=== PATIENT | female | born 1980 | race African-American/Black ===

== ENCOUNTER 2017-10-03 15:56 | Outpatient (CLI) | payer MEDICAID ==
[2017-10-03] MEDS ORDERED: IBUPROFEN 800 MG TABLET ONE (16:17)
[2017-10-03] MEDS ORDERED: IBUPROFEN 800 MG TABLET PO ONE (16:19)
[2017-10-03 16:52] LABS: APPEARANCE,URINE CLEAR; BILIRUBIN,URINE NEGATIVE (NEGATIVE); COLOR,URINE YELLOW; GLUCOSE, URINE NEGATIVE (NEGATIVE); KETONES,URINE NEGATIVE (NEGATIVE); LEUKOCYTE ESTERASE,URINE NEGATIVE (NEGATIVE); NITRITE,URINE NEGATIVE (NEGATIVE); PROTEIN,URINE NEGATIVE (NEGATIVE); URINE SPECIFIC GRAVITY 1.023; UROBILINOGEN,URINE NEGATIVE mg/dL (<2.0)
[2017-10-03 17:17] LABS: URINE AMPHETAMINES SCREEN NEGATIVE; URINE BARBITURATES SCREEN NEGATIVE; URINE BENZODIAZEPINES SCREEN NEGATIVE; URINE COCAINE SCREEN NEGATIVE; URINE MARIJUANA (THC) SCREEN NEGATIVE; URINE METHADONE SCREEN NEGATIVE; URINE PHENCYCLIDINE SCREEN NEGATIVE
== END 2017-10-03 18:00 | disposition home or self-care (01) ==
LOC: LC 15:56
PROVIDERS: ATTEND Obstetrics & Gynecology
PROC: 4A1HXCZ Monitoring of Products of Conception, Cardiac Rate, External Approach (ICD-10-PCS; principal; 2017-10-03)
DX: O09.522 Supervision of elderly multigravida, second trimester (principal); O47.02 False labor before 37 completed weeks of gestation, second trimester; Z3A.21 21 weeks gestation of pregnancy
CPT/HCPCS: 59899; 81001; 80307; J3490

== ENCOUNTER 2017-10-26 11:51 | Outpatient (CLI) | payer MEDICAID ==
[2017-10-26 12:32] LABS: APPEARANCE,URINE CLEAR; BILIRUBIN,URINE NEGATIVE (NEGATIVE); COLOR,URINE YELLOW; GLUCOSE, URINE NEGATIVE (NEGATIVE); KETONES,URINE NEGATIVE (NEGATIVE); LEUKOCYTE ESTERASE,URINE NEGATIVE (NEGATIVE); NITRITE,URINE NEGATIVE (NEGATIVE); PROTEIN,URINE NEGATIVE (NEGATIVE); URINE SPECIFIC GRAVITY 1.006; UROBILINOGEN,URINE NEGATIVE mg/dL (<2.0)
[2017-10-26 12:47] LABS: URINE AMPHETAMINES SCREEN NEGATIVE; URINE BARBITURATES SCREEN NEGATIVE; URINE BENZODIAZEPINES SCREEN NEGATIVE; URINE COCAINE SCREEN NEGATIVE; URINE MARIJUANA (THC) SCREEN NEGATIVE; URINE METHADONE SCREEN NEGATIVE; URINE PHENCYCLIDINE SCREEN NEGATIVE
--- NOTE | 2017-10-26 14:15 | RADIOLOGY REPORT (SQ) ---
EXAM DESCRIPTION: U/S OB LIMITED COMPLETED DATE/TIME: 10/26/2017 2:03 pm REASON FOR STUDY: cervical length, presentation, placement of placen COMPARISON: None. TECHNIQUE: Limited transabdominal grayscale ultrasound for evaluation of specific requested obstetri saida parameters. LIMITATIONS: None. FINDINGS: CERVICAL LENGTH: 1.8 cm. Closed. JHONY: Not obtained FHR: 139 beats per minute. PRESENTATION: Breech. OTHER: Posterior placenta. MIKE: 02/04/2018. Gestational age: 25 weeks 4 days. IMPRESSION: LIMITED OBSTETRICAL ULTRASOUND WITH MEASURED PARAMETERS DELINEATED ABOVE. Trimester of : Second trimester - 13 weeks 1 day to 27 weeks 6 days. TECHNICAL DOCUMENTATION: JOB ID: [id number] [employer]- All Rights Reserved Reading location - IP/workstation name: [email or web address]
--- NOTE | 2017-10-26 14:20 | L&D Progress Notes ---
PROGRESS NOTES Datetime Report Generated by CPN: 10/26/2017 14:20 PROGRESS NOTE Procedures: Ultrasound Plan: Continue Present Management Vital Signs : Reviewed; Within Normal Limits Comment: pt denies contractions, no contractions by palpation by CNM but many movements. pt instructed to call RN if any contractions occur. pt lying flat in bed. MD notified of cervical length. SIGNATURE SIGNATURE: [phone] Assignment: Delmy Marquez MD Signature: with User ID: [email or web address] : with User ID: [email or web address]
--- NOTE | 2017-10-26 15:10 | L&D Progress Notes ---
PROGRESS NOTES Datetime Report Generated by CPN: 10/26/2017 15:09 PROGRESS NOTE Comment: after discussing care with Dr Cedeno and sending pictures of cervical ultrasound, plan of care by Dr Cedeno explained to pt-motrin 600mg [id number] for 3 days, no steroids for now, follow up with Dr Cedeno on Sunday as scheduled. continue P17 weekly, strict PTL precautions. FETUS C SIGNATURE: [id number] Assignment: Delmy Marquez MD Signature: with User ID: [email or web address] : with User ID: [email or web address]
== END 2017-10-26 15:06 | disposition home or self-care (01) ==
LOC: LC 11:51
PROVIDERS: ATTEND Obstetrics & Gynecology
PROC: 4A1HXCZ Monitoring of Products of Conception, Cardiac Rate, External Approach (ICD-10-PCS; principal; 2017-10-26)
DX: O26.872 Cervical shortening, second trimester (principal); O09.522 Supervision of elderly multigravida, second trimester; Z3A.25 25 weeks gestation of pregnancy
CPT/HCPCS: 76815; 80307; 81001; 87086

== ENCOUNTER 2017-12-29 18:45 | Outpatient (CLI) | payer MEDICAID ==
[2017-12-29 19:50] LABS: URINE AMPHETAMINES SCREEN NEGATIVE; URINE BARBITURATES SCREEN NEGATIVE; URINE BENZODIAZEPINES SCREEN NEGATIVE; URINE COCAINE SCREEN NEGATIVE; URINE MARIJUANA (THC) SCREEN NEGATIVE; URINE METHADONE SCREEN NEGATIVE; URINE PHENCYCLIDINE SCREEN NEGATIVE
[2017-12-29 19:57] LABS: APPEARANCE,URINE SLIGHTLY-CLOUDY; BILIRUBIN,URINE NEGATIVE (NEGATIVE); COLOR,URINE YELLOW; GLUCOSE, URINE NEGATIVE (NEGATIVE); KETONES,URINE 20 mg/dL (NEGATIVE); LEUKOCYTE ESTERASE,URINE TRACE (NEGATIVE); NITRITE,URINE NEGATIVE (NEGATIVE); PROTEIN,URINE 30 mg/dL (NEGATIVE); URINE SPECIFIC GRAVITY 1.023; UROBILINOGEN,URINE NEGATIVE mg/dL (<2.0)
== END 2017-12-29 21:32 | disposition home or self-care (01) ==
LOC: LC 18:45
PROVIDERS: ATTEND Obstetrics & Gynecology
PROC: 4A1HXCZ Monitoring of Products of Conception, Cardiac Rate, External Approach (ICD-10-PCS; principal; 2017-12-29)
DX: O47.03 False labor before 37 completed weeks of gestation, third trimester (principal); O99.283 Endocrine, nutritional and metabolic diseases complicating pregnancy, third trimester; E86.0 Dehydration; O09.523 Supervision of elderly multigravida, third trimester; Z3A.34 34 weeks gestation of pregnancy
CPT/HCPCS: 59025; 80307; 81001

== ENCOUNTER 2018-01-07 10:31 | Outpatient (CLI) | payer MEDICAID ==
--- NOTE | 2018-01-07 10:39 | Non Stress Test Report ---
Non Stress Test Datetime Report Generated by CPN: 01/07/2018 10:39 DEMOGRAPHIC EGA NST: 34.1 INDICATION Indication for Study: Ordered by Provider Indication for Study (NST) Other: LC URINE RESULTS Urine Protein, NST: Positive Urine Ketones - NST: Positive Urine Glucose - NST: Negative Urine Blood - NST: Negative MONITORING Monitor Explained: Monitor Explained; Test Explained; Patient Verbalized Understanding Time on Monitor: 12/29/2017 18:51 Time off Monitor: 12/29/2017 21:18 NST Duration: 147 NST INTERVENTIONS NST Interventions: PO Hydration; Reposition Patient Physician Notified NST: Younger BABY A: [id number] BABY A Movement : Present Contraction Frequency : 2-10 FHR Baseline : 140 Accelerations : 15X15 Decelerations : None Variability : Moderate 6-25bpm NST Review: Meets Criteria for Reactive NST NST Review and Verified By : Iraida Del Valle RN NST Results: Reactive NST REPORT Report Trigger: Send Report
== END 2018-01-07 11:34 | disposition home or self-care (01) ==
LOC: LC 10:31
PROVIDERS: ATTEND Obstetrics & Gynecology
PROC: 4A1HXCZ Monitoring of Products of Conception, Cardiac Rate, External Approach (ICD-10-PCS; principal; 2018-01-07)
DX: O47.03 False labor before 37 completed weeks of gestation, third trimester (principal); O09.523 Supervision of elderly multigravida, third trimester; Z3A.34 34 weeks gestation of pregnancy
CPT/HCPCS: 59025

== ENCOUNTER 2018-01-21 15:06 | Outpatient (CLI) | payer MEDICAID ==
[2018-01-21 15:34] LABS: APPEARANCE,URINE CLEAR; BILIRUBIN,URINE NEGATIVE (NEGATIVE); COLOR,URINE STRAW; GLUCOSE, URINE NEGATIVE (NEGATIVE); KETONES,URINE NEGATIVE (NEGATIVE); LEUKOCYTE ESTERASE,URINE TRACE (NEGATIVE); NITRITE,URINE NEGATIVE (NEGATIVE); PROTEIN,URINE NEGATIVE (NEGATIVE); URINE SPECIFIC GRAVITY 1.008; UROBILINOGEN,URINE NEGATIVE mg/dL (<2.0)
[2018-01-21 15:51] LABS: URINE AMPHETAMINES SCREEN NEGATIVE; URINE BARBITURATES SCREEN NEGATIVE; URINE BENZODIAZEPINES SCREEN NEGATIVE; URINE COCAINE SCREEN NEGATIVE; URINE MARIJUANA (THC) SCREEN NEGATIVE; URINE METHADONE SCREEN NEGATIVE; URINE PHENCYCLIDINE SCREEN NEGATIVE
[2018-01-21 16:10] LABS: EPITHELIALS (WET MOUNT) 4+ EPITHELIALS SEEN; T.VAGINALIS (WET MOUNT) NO TRICHOMONAS SEEN; YEAST (WET MOUNT) NO YEAST SEEN
[2018-01-21 16:11] LABS: BACTERIA (WET MOUNT) 3+ BACTERIA SEEN; WBCS (WET MOUNT) 1+ WBCS SEEN
--- NOTE | 2018-01-21 16:19 | Non Stress Test Report ---
Non Stress Test Datetime Report Generated by CPN: 01/21/2018 16:19 DEMOGRAPHIC EGA NST: 37.3 EGA NST: 35.3 INDICATION Indication for Study: Other Indication for Study: Ordered by Provider Indication for Study (NST) Other: labor check MONITORING Monitor Explained: Monitor Explained; Test Explained; Patient Verbalized Understanding Monitor Explained: Monitor Explained; Test Explained; Patient Verbalized Understanding Time on Monitor: 01/21/2018 15:26 Time on Monitor: 01/07/2018 10:43 Time off Monitor: 01/21/2018 16:14 Time off Monitor: 01/07/2018 11:28 NST Duration: 48 NST Duration: 45 NST INTERVENTIONS NST Interventions: PO Hydration NST Interventions: PO Hydration; Reposition Patient Physician Notified NST: Dr. Younger Physician Notified NST: Gregg CNM BABY A: [id number] BABY A Movement : Present Movement : Present Contraction Frequency : rare Contraction Frequency : 0 FHR Baseline : 130 FHR Baseline : 145 Accelerations : 15X15 Accelerations : 15X15 Decelerations : None Variability : Moderate 6-25bpm Variability : Moderate 6-25bpm NST Review: Meets Criteria for Reactive NST NST Review and Verified By : Miranda Chandler RN NST Results: Reactive NST REPORT Report Trigger: Send Report
== END 2018-01-21 16:24 | disposition home or self-care (01) ==
LOC: LC 15:06
PROVIDERS: ATTEND Obstetrics & Gynecology
PROC: 4A1HXCZ Monitoring of Products of Conception, Cardiac Rate, External Approach (ICD-10-PCS; principal; 2018-01-21)
DX: O47.1 False labor at or after 37 completed weeks of gestation (principal); Z3A.37 37 weeks gestation of pregnancy
CPT/HCPCS: 80307; 81005; 84112; 87210

== ENCOUNTER 2018-02-01 09:52 | Inpatient (IN) | payer MEDICAID ==
[2018-02-01] MEDS ORDERED: OXYTOCIN/NORMAL SALINE 20 UNIT/1,000 ML RTUINJ IV PRN ×2 (10:33→16:27)
[2018-02-01] MEDS ORDERED: RINGERS SOLUTION,LACTATED 300 ML IV ONE (10:33)
[2018-02-01] MEDS ORDERED: RINGERS SOLUTION,LACTATED 1,000 ML IV PRN (10:33)
[2018-02-01 11:06] LABS: APPEARANCE,URINE CLEAR; BILIRUBIN,URINE NEGATIVE (NEGATIVE); COLOR,URINE STRAW; GLUCOSE, URINE NEGATIVE (NEGATIVE); KETONES,URINE NEGATIVE (NEGATIVE); LEUKOCYTE ESTERASE,URINE NEGATIVE (NEGATIVE); NITRITE,URINE NEGATIVE (NEGATIVE); PROTEIN,URINE NEGATIVE (NEGATIVE); URINE SPECIFIC GRAVITY 1.006; UROBILINOGEN,URINE NEGATIVE mg/dL (<2.0)
[2018-02-01 11:19] LABS: HEMOGLOBIN 10.5 g/dL (12.0-15.5); MEAN CORPUSCULAR HEMOGLOBIN 26.5 pg (27.0-33.4); MEAN CORPUSCULAR HGB CONC 32.8 g/dL (32.0-36.0); MEAN CORPUSCULAR VOLUME 81 fl (80-97); PLATELET COUNT 181 10^3/uL (150-450); RED BLOOD COUNT 3.97 10^6/uL (3.72-5.28); RED CELL DISTRIBUTION WIDTH 14.3 % (11.5-14.0); WHITE BLOOD COUNT 3.8 10^3/uL (4.0-10.5)
[2018-02-01 11:22] LABS: URINE AMPHETAMINES SCREEN NEGATIVE; URINE BARBITURATES SCREEN NEGATIVE; URINE BENZODIAZEPINES SCREEN NEGATIVE; URINE COCAINE SCREEN NEGATIVE; URINE MARIJUANA (THC) SCREEN NEGATIVE; URINE METHADONE SCREEN NEGATIVE; URINE PHENCYCLIDINE SCREEN NEGATIVE
[2018-02-01 11:40] LABS: ABSOLUTE LYMPHOCYTES# (MANUAL) 0.8 10^3/uL (0.5-4.7); ABSOLUTE MONOCYTES # (MANUAL) 0.5 10^3/uL (0.1-1.4); ABSOLUTE NEUTROPHILS# (MANUAL) 2.5 10^3/uL (1.7-8.2); ANISOCYTOSIS SLIGHT; BAND NEUTROPHILS % (MANUAL) 2 % (3-5); BASOPHILS % (MANUAL) 0 % (0-2); EOSINOPHILS % (MANUAL) 0 % (0-6); LYMPHOCYTES % (MANUAL) 22 % (13-45); METAMYELOCYTES % (MANUAL) 2 % (0); MONOCYTES % (MANUAL) 13 % (3-13); OVALOCYTES SLIGHT; POIKILOCYTOSIS SLIGHT; POLYCHROMASIA SLIGHT; SEGMENTED NEUTROPHILS % (MAN) 61 % (42-78); TOTAL CELLS COUNTED 100
[2018-02-01 11:41] LABS: PLATELET COMMENT ADEQUATE
[2018-02-01] MEDS ORDERED: LIDOCAINE 1% INJ-PF (10 MG/ML) 30 ML SDV ONE (11:51)
[2018-02-01] MEDS ORDERED: MISOPROSTOL 0.2 MG TABLET ONE (11:51)
[2018-02-01] MEDS ORDERED: OXYTOCIN/NORMAL SALINE 20 UNIT/1,000 ML RTUINJ ONE (11:51)
--- NOTE | 2018-02-01 13:39 | Admission Physical ---
Datetime Report Generated by CPN: 02/01/2018 13:39 CURRENT ADMISSION Chief Complaint: Sent from OB Office for Evaluation and Treatment - Please Specify Indication for Induction: Polyhydramnios Admit Impression : Obstetrical Complication Admit Impression- Other: JHONY 30 this AM at [facility] Admit Plan: Initiate Labor Induction Protocol ALLERGIES Medication Allergies: No Medication Allergies: No Known Allergies (02/01/2018) Latex: No Latex Allergies Food Allergies: mangos, orange juice Environmental Allergies: none OBSTETRICAL HISTORY EDC: 02/08/2018 00:00 : 7 Para: 3 Term: 2 : 1 SAB: 1 IAB: 2 Ectopic: 0 Livin Cesareans: 0 VBACs: 0 Multiple Births: 0 Gestational Diabetes: No Rh Sensitization: No ELÍAS: No Infertility: No ART Treatment: No Uterine Anomaly: No IUGR: No Hx Previous C/S: No Macrosomia: No Hx Loss/Stillborn: No PIH: No Hx : No Placenta Previa/Abruption: No Depression/PP Depression: No PTL/PROM: No Post Hemorrhage: No Current Procedures: Ultrasound; NST Obstetrical History Comments: G1- 2000 G2- 2001 AB d_c G3- 2002 EAB G4- 2003 PTL, PTD 30 weeks G5- 2004 EAB G6- 2006 bedrest at 2 months, p17 shots G7- Current p17, poly SEE RECORDS Alcohol: No Marijuana : No Cocaine: No Other Illicit Drugs: No Cigarettes: Never Smoker. 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 Surgery: No Heart Disease: No Hosp/Surgery: No Autoimmune Disorder: No Anesthetic Complications: No Kidney Disease: No Abnormal Pap Smear: Yes Neuro/Epilepsy: No Psychiatric Disorders: No Other Medical Diseases: No Hepatitis/Liver Disease: No Significant Family History: No Varicosities/Phlebitis: No Trauma/Violence : No Thyroid Dysfunction: No Medical History Comments: Cervical biopsy, leep 2013 INFECTIOUS HISTORY Gonorrhea: No Genital Herpes: Yes Chlamydia: No Tuberculosis: No Syphilis: No Hepatitis: No HIV/AIDS Exposure: No Rash or Viral Illness: No HPV: No Infectious History Comments: HSV PHYSICAL EXAM General: Normal HEENT: Deferred Neurologic: Normal Thyroid: Deferred Heart: Normal Lungs: Normal Breast: Deferred Back: Deferred Abdomen: Normal Genitourinary Exam: Normal Extremities: Normal DTRs: Deferred Pelvic Type: Adequate VAGINAL EXAM Dilatation: 6 Effacement: 80 Station: -1 MEMBRANES Membranes: Ruptured Amniotic Fluid Color: Clear FETUS A EGA: 39.0 Monitoring: External US FHR- Baseline: 155 Accelerations: 15X15 Decelerations: None FHR Category: Category I Presentation: Vertex Admit Comment: AMA Polyhydramnios PLANS FOR LABOR AND DELIVERY Labor and Delivery: None Pain Management: Natural; Epidural Other Pain Management Plans: undecided Feeding Preference: Breast Benefit of Breast Feed Discussed: Yes Circumcision: N/A INFORMED CONSENT Assignment: Alycia Chandler MD Signature: with User ID: [email or web address] : with User ID: Doug
[2018-02-01] MEDS ORDERED: IBUPROFEN 800 MG TABLET ONE (15:06)
--- NOTE | 2018-02-01 15:14 | Warning Signs in Babies ---
VOD Warning Signs Datetime Report Generated by [facility]: 02/01/2018 15:14 VOD#[id number] -Warning Signs in Babies: Viewed with Parent(s)/Family (02/01/2018 14:19:Chante Gary RN)
[2018-02-01] MEDS ORDERED: ACETAMINOPHEN WITH CODEINE #3 TABLET ONE (15:37)
--- NOTE | 2018-02-01 15:54 | Delivery Summary ---
Del Sum A-C Datetime Report Generated by CPN: 02/01/2018 15:54 DELIVERY PERSONNEL DELIVERY PERSONNEL: [id number] Delivery Doctor:: Francheska Flaherty CNM Labor and Delivery Nurse:: Chante Gary RNcopra sampler Nurse:: REMY Hays Rating Examiner/BEHAVIORAL ANALYST: Juliana Deems, DENTAL CERAMIST HELPER MATERNAL INFORMATION Delivery Anesthesia: None Medications After Delivery: Pitocin Bolus-Please Comment Meds After Delivery Comment: Pitocin 20 units in 1 L NS bolusing per order Maternal Complications: None Provider Comments: SVDVF over 2* perineal lac, short cord noted. Infant vigorous, to mothers abd. Cord clamped and cut after 2 min, 3vc noted. Placenta via melvin, intact. Mother and stable upon leaving the room. LABOR SUMMARY EDC: 02/08/2018 00:00 No. Babies in Womb: 1 Attempted: No Labor Anesthesia: None LABOR INFORMATION Reason for Induction: Polyhydramnios Onset of Labor: 02/01/2018 13:35 Complete Dilatation: 02/01/2018 13:55 Oxytocin: Induction Group B Beta Strep: negative Antibiotics # of Doses: 0 Steroids Given: None Reason Steroids Not Administered: Not Applicable MEMBRANES Membranes Rupture Method: Artificial Rupture of Membranes: 02/01/2018 13:30 Length of Rupture (hr): 0.47 Amniotic Fluid Color: Clear Amniotic Fluid Amount: Small Amniotic Fluid Odor: Normal STAGES OF LABOR Stage 1 hr: 0 Stage 1 min: 20 Stage 2 hr: 0 Stage 2 min: 3 Stage 3 hr: 0 Stage 3 min: 12 Total Time in Labor hr: 0 Total Time in Labor min: 35 VAGINAL DELIVERY Episiotomy: None Laceration #1: Perineal Laceration Extension #1: Second Degree Laceration Repair: Yes Laceration Repair Note: Lidocaine used for laceration repair Repaired in usual fashion with 2.0- Chromic Sponge Count Correct: Yes Sharps Count Correct: Yes CSECTION DELIVERY Primary Indication: N/A Secondary Indication: N/A CSection Incidence: N/A Labor: N/A Elective: N/A CSection Incision: N/A BABY A INFORMATION Delivery Date/Time: 02/01/2018 13:58 Method of Delivery: Vaginal Born in Route : No : N/A Forceps: N/A Vacuum Extraction: N/A Shoulder Dystocia : No PRESENTATION/POSITION BABY A Presentation: Cephalic Cephalic Presentation: Vertex Vertex Position: Right Occipital Anterior Breech Presentation: N/A PLACENTA INFORMATION BABY A Placenta Delivery Time : 02/01/2018 14:10 Placenta Method of Delivery: Spontaneous Placenta Status: Delivered SCORES BABY A Heart Rate 1 min: >100 bpm Resp Effort 1 min: Good Cry Reflex Irritability 1 min: Cough or Sneeze or Pulls Away Muscle Tone 1 min: Active Motion Color 1 min: Body [place], Extremities Blue Resuscitation Effort 1 min: Tactile Stimulation SCORE 1 MIN: 9 Heart Rate 5 min: >100 bpm Resp Effort 5 min: Good Cry Reflex Irritability 5 min: Cough or Sneeze or Pulls Away Muscle Tone 5 min: Active Motion Color 5 min: Completely [place] Resuscitation Effort 5 min: Tactile Stimulation SCORE 5 MIN: 10 INFORMATION BABY A Gestational Age at Delivery: 39.0 Gestational Status: Full Term- 39- 40.6 Weeks Outcome : Liveborn Infant Condition : Stable Infant Sex: Female IDENTIFICATION BABY A Infant Verification Date/Time: 02/01/2018 14:14 ID Band Number: [id number] Mother's Name Verified: Yes RN Verifying : E Pancho, RNC Additional Verifying Personnel: C Rosie, RN WEIGHT/LENGTH BABY A Birthweight (gm): 4030 Weight (lb): 8 Infant Weight (oz): 14 Infant Length (in): 21.00 Length (cm): 53.34 CORD INFORMATION BABY A No. Cord Vessels: 3 Nuchal Cord : N/A Cord Blood Taken: Yes-For Eval (Mom's Blood Type - or O+) Infant Suction: None ASSESSMENT BABY A Complications: Polyhydramnios Skin to Skin: Yes Skin to Skin Time (min): 20 Special Needs Babysitter/ALS Called : No Care By: D. Bellavance, RNC Transferred To: Remains with Mother BABY B INFORMATION : N/A SIGNATURES Assignment: Alycia Chandler MD Signature: with User ID: [email or web address] : with User ID: [email or web address] : I was personally available for consultation and serving as supervising physician for the MLP.
[2018-02-01] MEDS ORDERED: DIBUCAINE 1% OINTMENT 28 GM TP PRN (16:27)
[2018-02-01] MEDS ORDERED: DIPH/PERTUSS(ACELL)/TETANUS VAC/PF 0.5 ML SYR (>=10YO) IM PRN (16:27)
[2018-02-01] MEDS ORDERED: BENZOCAINE/MENTHOL AEROSOL SPRAY 56 ML TOP PRN (16:27)
[2018-02-01] MEDS ORDERED: ACETAMINOPHEN WITH CODEINE #3 TABLET PO PRN ×2 (16:27)
[2018-02-01] MEDS ORDERED: ZOLPIDEM TARTRATE 5 MG TABLET PO PRN (16:27)
[2018-02-01] MEDS ORDERED: MEASLES,MUMPS&RUBELLA VACC/PF 0.5 ML VIAL SUBCUT PRN (16:27)
[2018-02-01] MEDS: DOCUSATE SODIUM 100 MG CAPSULE PO SCH (17:30)
[2018-02-01] MEDS: FERROUS SULFATE 325 MG TABLET PO SCH (17:30)
[2018-02-01] MEDS: IBUPROFEN 800 MG TABLET PO SCH (21:42)
[2018-02-02] MEDS: IBUPROFEN 800 MG TABLET PO SCH ×3 (06:31→21:06)
[2018-02-02 07:02] LABS: HEMATOCRIT 27.3 % (36.0-47.0); MEAN CORPUSCULAR HEMOGLOBIN 26.7 pg (27.0-33.4); MEAN CORPUSCULAR HGB CONC 32.9 g/dL (32.0-36.0); MEAN CORPUSCULAR VOLUME 81 fl (80-97); PLATELET COUNT 141 10^3/uL (150-450); RED BLOOD COUNT 3.36 10^6/uL (3.72-5.28); RED CELL DISTRIBUTION WIDTH 14.6 % (11.5-14.0)
[2018-02-02] MEDS: FERROUS SULFATE 325 MG TABLET PO SCH ×2 (10:15→17:10)
[2018-02-02] MEDS: PRENATAL VITAMIN W DHA CAPSULE PO SCH (10:15)
[2018-02-02] MEDS: SENNOSIDES/DOCUSATE 8.6-50 MG 1 EACH TABLET PO SCH (10:15)
[2018-02-02] MEDS: DOCUSATE SODIUM 100 MG CAPSULE PO SCH ×2 (10:16→17:10)
--- NOTE | 2018-02-02 10:54 | PDOC PROGRESS REPORT ---
Subjective-OB Progress Note for:: 02/02/18 Subjective: Pt is doing well, reports light bleeding, reg diet and is voiding without difficulty. Physical Exam (OB) Vital Signs: Temp Pulse Resp BP Pulse Ox 97.8 F 76 18 139/81 H 100 02/02/18 09:49 02/02/18 09:49 02/02/18 09:49 02/02/18 09:49 02/02/18 09:49 Intake & Output 02/01/18 02/02/18 02/03/18 06:59 06:59 06:59 Intake Total 1999 Balance 1999 Weight 112.9 kg - Lochia Lochia Amount: Scant < 10 ml Lochia Color: Rubra/Red - Abdomen Description: Soft Hernia Present: No Fundal Description: Firm, Midline Fundal Height: u/u - u/2 Objective-Diagnostic Laboratory: 02/02/18 06:47 02/01/18 02/01/18 02/01/18 10:00 11:02 11:02 WBC 3.8 L RBC 3.97 Hgb 10.5 L Hct 32.0 L MCV 81 MCH 26.5 L MCHC 32.8 RDW 14.3 H Plt Count 181 Seg Neutrophils % Not Reportable Lymphocytes % Not Reportable Monocytes % Not Reportable Eosinophils % Not Reportable Basophils % Not Reportable Absolute Neutrophils Not Reportable Absolute Lymphocytes Not Reportable Absolute Monocytes Not Reportable Absolute Eosinophils Not Reportable Absolute Basophils Not Reportable Urine Color STRAW Urine Appearance CLEAR Urine pH 7.0 Ur Specific Am[place] 1.006 Urine Protein NEGATIVE Urine Glucose (UA) NEGATIVE Urine Ketones NEGATIVE Urine Blood NEGATIVE Urine Nitrite NEGATIVE Ur Leukocyte Esterase NEGATIVE Blood Type O POSITIVE Antibody Screen NEGATIVE 02/02/18 06:47 WBC 6.0 RBC 3.36 L Hgb 9.0 L Hct 27.3 L MCV 81 MCH 26.7 L MCHC 32.9 RDW 14.6 H Plt Count 141 L Seg Neutrophils % Lymphocytes % Monocytes % Eosinophils % Basophils % Absolute Neutrophils Absolute Lymphocytes Absolute Monocytes Absolute Eosinophils Absolute Basophils Urine Color Urine Appearance Urine pH Ur Specific Am[place] Urine Protein Urine Glucose (UA) Urine Ketones Urine Blood Urine Nitrite Ur Leukocyte Esterase Blood Type Antibody Screen Assessment and Plan(PN) - Assessment and Plan (1) Polyhydramnios affecting in third trimester Is this a current diagnosis for this admission?: Yes (2) Vaginal delivery Is this a current diagnosis for this admission?: Yes - Time Spent with Patient Time with patient: Less than 15 minutes Medications reviewed and adjusted accordingly: Yes - Disposition Anticipated Discharge: Home Within: within 24 hours
[2018-02-03] MEDS: IBUPROFEN 800 MG TABLET PO SCH (06:36)
--- NOTE | 2018-02-03 09:21 | PDOC DISCHARGE SUMMARY ---
Final Diagnosis Discharge Date: 02/03/18 - Final Diagnosis (1) Polyhydramnios affecting in third trimester Is this a current diagnosis for this admission?: Yes (2) Vaginal delivery Is this a current diagnosis for this admission?: Yes Discharge Data - Discharge Medication Home Medications: Vit/Iron Fum/Folic AC [ Tablet] 1 tab PO DAILY 10/03/17 Reason(s) for Admission: Induction of Labor, Obstetric Complications Admission Note: JHONY 30 Procedures: NST Intrapartum Procedure(s): Spontaneous Vaginal Delivery Complication(s): Laceration-Perineal Laceration-Degree: 2nd - Diagnosis Test Laboratory: Temp Pulse Resp BP Pulse Ox 98.7 F 84 18 128/69 H 97 02/03/18 08:16 02/03/18 08:16 02/03/18 08:16 02/03/18 08:16 02/03/18 08:16 02/01/18 02/01/18 02/02/18 10:00 11:02 06:47 RBC 3.97 3.36 L Hgb 10.5 L 9.0 L Hct 32.0 L 27.3 L Urine Opiates Screen NEGATIVE - Discharge information/Instructions Discharge Activity: Balance Activity w/Rest, No Lifting/Push/Pulling, Pelvic Rest Discharge Diet: Regular Disposition: HOME, SELF-CARE Follow up with: [facility] in: 3, Weeks
[2018-02-03] MEDS: FERROUS SULFATE 325 MG TABLET PO SCH (10:42)
[2018-02-03] MEDS: DOCUSATE SODIUM 100 MG CAPSULE PO SCH (10:42)
[2018-02-03] MEDS: SENNOSIDES/DOCUSATE 8.6-50 MG 1 EACH TABLET PO SCH (10:43)
[2018-02-03] MEDS: PRENATAL VITAMIN W DHA CAPSULE PO SCH (10:43)
[2018-02-03 11:25] VITALS: BP 139/81
== END 2018-02-03 12:15 | disposition home or self-care (01) | DRG 806 ==
LOC: LR 09:52 → 2S 16:30
PROVIDERS: ADMIT Obstetrics & Gynecology; ATTEND Obstetrics & Gynecology
PROC: 0KQM0ZZ Repair Perineum Muscle, Open Approach (ICD-10-PCS; principal; 2018-02-01)
PROC: 10E0XZZ Delivery of Products of Conception, External Approach (ICD-10-PCS; 2018-02-01)
PROC: 4A1HXCZ Monitoring of Products of Conception, Cardiac Rate, External Approach (ICD-10-PCS; 2018-02-01)
DX: O40.3XX0 Polyhydramnios, third trimester, not applicable or unspecified (principal); O98.32 Other infections with a predominantly sexual mode of transmission complicating childbirth; Z37.0 Single live birth; O70.1 Second degree perineal laceration during delivery; O69.3XX0 Labor and delivery complicated by short cord, not applicable or unspecified; A60.00 Herpesviral infection of urogenital system, unspecified; Z3A.39 39 weeks gestation of pregnancy
CPT/HCPCS: 36415; 80307; 81005; 85025; 85027; 86592; 86850; 86900; 86901; 88307; J2590; J3490

== ENCOUNTER 2018-02-25 20:26 | Emergency (ER) | payer MEDICAID ==
[2018-02-25 20:31] VITALS: BP 133/71
[2018-02-25] MEDS ORDERED: CEPHALEXIN 500 MG CAPSULE PO ONE (22:33)
--- NOTE | 2018-02-25 22:37 | ER Document Report ---
HPI - HPI Pain Level: 5 Context: Patient is a 38-year-old female that comes to the emergency department for chief of breast pain, much worse on the right compared to the left. She denies any noted severe redness or pain. She denies any swollen area or pus drainage. She states that earlier she had a fever of 101 but this resolved and now she feels much better. She denies any abdominal pain, vaginal bleeding, nausea or vomiting, shortness of breath, sore throat, headache. She is 3 weeks , breast-feeding. Uncomplicated vaginal delivery. She denies any daily medications. - DERM Skin Color: Normal Past Medical History - General Information source: Patient - Social History Smoking Status: Never Smoker Frequency of alcohol use: None Drug Abuse: None Lives with: Family Family History: Reviewed & Not Pertinent Patient has suicidal ideation: No Patient has homicidal ideation: No - Medical History Medical History: Negative Renal/ Medical History: Denies: Hx Peritoneal Dialysis Surgical Hx: Negative - Immunizations Immunizations up to date: Yes Hx Diphtheria, Pertussis, Tetanus Vaccination: Yes Vertical Provider Document - CONSTITUTIONAL General Appearance: WD/WN, No Apparent Distress - INFECTION CONTROL TRAVEL OUTSIDE OF THE [place] IN LAST 30 DAYS: No - HEENT HEENT: Atraumatic, Normocephalic - NECK Neck: Normal Inspection - RESPIRATORY Respiratory: Breath Sounds Normal, No Respiratory Distress - CARDIOVASCULAR Cardiovascular: Regular Rate, Regular Rhythm - GI/ABDOMEN Gastrointestinal: Abdomen Soft, Abdomen Non-Tender - BACK Back: Normal Inspection - MUSCULOSKELETAL/EXTREMETIES Musculoskeletal/Extremeties: MAEW, FROM, Non-Tender - NEURO Level of Consciousness: Awake, Alert, Appropriate - DERM Integumentary: negative: Abscess - There is mild erythema and warmth over the general right breast, no abscess, no induration, no fluctuance, no severe tenderness. Exam performed with Angela TINSLEY at bedside. Course - Re-evaluation Re-evalutation: Patient smiling and well-appearing, no fever here, vital signs unremarkable here , patient has evidence of mastitis and examination consistent with this although she does not have evidence of abscess on exam. She does not have any abdominal pain suggesting endometritis. Treating with Keflex, discussed recommendations, follow-up, and return precautions in detail. Patient states understanding and agreement. - Vital Signs Vital signs: Temp Pulse Resp BP Pulse Ox 99.9 F 82 18 133/71 H 99 02/25/18 20:29 02/25/18 20:29 02/25/18 20:29 02/25/18 20:29 02/25/18 20:29 Discharge - Discharge Clinical Impression: Mastitis Fever Qualifiers: Fever type: unspecified Qualified Code(s): R50.9 - Fever, unspecified Condition: Stable Disposition: HOME, SELF-CARE Additional Instructions: You have an infection in your breast, called mastitis. This is due to bacteria invading the breast through the milk ducts. Mastitis can be serious, and must be treated carefully. Antibiotics are required. Usually, warm packs are recommended. Some improvement should be evident within 24 to 36 hours. If you're breast-feeding, you should continue to nurse the baby. The baby won't be harmed by the milk from the infected breast. If you stop nursing, the breast must be pumped. If milk builds up in the breast, the infection can dramatically worsen! Follow-up care is important to check for abscess (boil) formation or resistant infection. If you develop fever, chills, or if the area of infection is becoming rapidly more swollen or painful, call the doctor at once. Prescriptions: Cephalexin Monohydrate [Keflex 500 mg Capsule] 500 mg PO QID #28 capsule Referrals: CAROL HAGAN MD [ACTIVE STAFF] - Follow up as needed
== END 2018-02-25 22:41 | disposition home or self-care (01) ==
LOC: ER 20:26
DX: O91.22 Nonpurulent mastitis associated with the puerperium (principal); O86.4 Pyrexia of unknown origin following delivery
CPT/HCPCS: 99283

== ENCOUNTER 2019-04-10 07:53 | Day surgery (SDC) | payer OTHER, MEDICAID ==
--- NOTE | 2019-04-08 09:46 | EKG REPORT ---
SEVERITY:- BORDERLINE ECG - SINUS RHYTHM NONSPECIFIC ST-T CHANGES- INFERIOR LEADS, MILD NO CHANGE FROM 2016 EKG : Confirmed by: Alfredito Jurado MD 08-Apr-2019 09:45:42
[2019-04-08 10:26] LABS: HEMATOCRIT 40.4 % (36.0-47.0); MEAN CORPUSCULAR HEMOGLOBIN 26.5 pg (27.0-33.4); MEAN CORPUSCULAR HGB CONC 32.3 g/dL (32.0-36.0); MEAN CORPUSCULAR VOLUME 82 fl (80-97); PLATELET COUNT 185 10^3/uL (150-450); RED BLOOD COUNT 4.92 10^6/uL (3.72-5.28); RED CELL DISTRIBUTION WIDTH 14.5 % (11.5-14.0); WHITE BLOOD COUNT 2.9 10^3/uL (4.0-10.5)
[2019-04-08 10:35] LABS: APPEARANCE,URINE CLEAR; BILIRUBIN,URINE NEGATIVE (NEGATIVE); COLOR,URINE YELLOW; GLUCOSE, URINE NEGATIVE (NEGATIVE); KETONES,URINE NEGATIVE (NEGATIVE); LEUKOCYTE ESTERASE,URINE NEGATIVE (NEGATIVE); NITRITE,URINE NEGATIVE (NEGATIVE); PROTEIN,URINE NEGATIVE (NEGATIVE); URINE SPECIFIC GRAVITY 1.023; UROBILINOGEN,URINE NEGATIVE mg/dL (<2.0)
[~2019-04-10 07:53] MED LIST: LACTATED RINGERS 1000 ML IV PRN; LIDOCAINE 0.5% INJ-PF (5 MG/ML) 50 ML SDV SUBCUT PRN
[2019-04-10] MEDS ORDERED: DIPHENHYDRAMINE HCL 50 MG/ML VIAL IV PRN (10:05)
[2019-04-10] MEDS ORDERED: OXYCODONE-ACETAMINOPHEN 5-325 MG TABLET PO PRN ×4 (10:05→11:34)
[2019-04-10] MEDS ORDERED: MEPERIDINE HCL/PF INJ 25 MG/1 ML DISP.SYRIN IV PRN (10:05)
[2019-04-10] MEDS ORDERED: PROMETHAZINE HCL INJ 25 MG/1 ML VIAL IV PRN ×2 (10:05)
[2019-04-10] MEDS ORDERED: FENTANYL CITRATE INJ/PF 100 MCG/2 ML AMPUL IV PRN ×3 (10:05)
[2019-04-10] MEDS ORDERED: ONDANSETRON HCL INJ/PF 4 MG/2 ML SDV IV PRN (10:05)
[2019-04-10] MEDS ORDERED: LIDOCAINE 2% INJ-PF (20 MG/ML) 10 ML AMPUL ONE (10:34)
[2019-04-10] MEDS ORDERED: DEXAMETHASONE SOD PHOSPHATE INJ 4 MG/1 ML VIAL ONE (10:34)
[2019-04-10] MEDS ORDERED: PROPOFOL INJ 200 MG/20 ML VIAL IV ONE (10:34)
[2019-04-10] MEDS ORDERED: MIDAZOLAM 2 MG/2 ML INJ ONE (10:34)
[2019-04-10] MEDS ORDERED: ONDANSETRON HCL INJ/PF 4 MG/2 ML SDV ONE (10:34)
[2019-04-10] MEDS ORDERED: FENTANYL CITRATE INJ/PF 100 MCG/2 ML AMPUL ONE (10:34)
[2019-04-10] MEDS ORDERED: KETOROLAC TROMETHAMINE INJ/PF 30 MG/1 ML SDV IV PRN (11:34)
[2019-04-10] MEDS ORDERED: RINGERS SOLUTION,LACTATED 1,000 ML IV PRN (11:34)
[2019-04-10] MEDS ORDERED: IBUPROFEN 800 MG TABLET PO PRN (11:34)
--- NOTE | 2019-04-10 11:40 | Operative Report ---
Operative Report DATE OF SURGERY: 04/10/19 PREOPERATIVE DIAGNOSIS: Patient desires tubal ligation with Filshie clips POSTOPERATIVE DIAGNOSIS: Same OPERATION: Laparoscopic bilateral tubal ligation using Filshie clips SURGEON: HELADIO FAIR ANESTHESIA: GA TISSUE REMOVED OR ALTERED: Fallopian tubes COMPLICATIONS: None ESTIMATED BLOOD LOSS: 10 cc INTRAOPERATIVE FINDINGS: Normal uterus tubes and ovaries PROCEDURE: Patient was taken the OR and placed in supine position. General anesthesia was induced. She is placed in a dorsolithotomy position using Rudy stirrups. Her perineum vagina and abdomen were prepared and draped in sterile fashion. She had just voided and her bladder did not need emptied. A sponge stick was placed in the vagina for manipulation of the uterus. An incision was made at the umbilicus and natural umbilical defect was identified and dilated using a Francheska clamp. The fascia was incised with Rao scissors approximately 3 mm allowing a blunt port to be placed. Laparoscopy confirmed appropriate placement. Each tube was identified and followed out to its fimbriated end while elevating the uterus with a sponge stick. The Filshie clip applicator was then used to place a clip at the mid isthmic portion of each fallopian tube. Photos were taken. Next the gas was allowed to escape from the abdomen. The scope and port were removed at the same time. The fascia at the umbilicus was closed with a 2-0 Vicryl suture. And the skin was closed with a 4-0 undyed Vicryl suture. The sponge stick was removed from the vagina. The patient was placed back in supine position and brought out of anesthesia. There were no complications.
--- NOTE | 2019-04-10 11:43 | Discharge Summary ---
Discharge Summary (SDC) - Discharge Final Diagnosis: Encounter for tubal ligation Date of Surgery: 04/10/19 Discharge Date: 04/10/19 Condition: Good Prescriptions: Oxycodone HCl/Acetaminophen [Percocet 5-325 mg Tablet] 1 tab PO Q4HP PRN #20 tablet PRN Reason: Referrals: BEE MALONE MD [Primary Care Provider] - Discharge Diet: Regular Discharge Activity: Balance Activity w/Rest, Pelvic Rest, Slowly Increase Activity Report the Following to Your Physician Immediately: Increase in Pain, Fever over 101 Degrees
[2019-04-10] MEDS ORDERED: KETOROLAC TROMETHAMINE INJ/PF 30 MG/1 ML SDV ONE (11:48)
[2019-04-10] MEDS ORDERED: OXYCODONE-ACETAMINOPHEN 5-325 MG TABLET ONE (12:29)
[2019-04-10] MEDS ORDERED: IBUPROFEN 800 MG TABLET ONE (12:29)
[2019-04-10 14:24] VITALS: BP 132/92
== END 2019-04-10 14:10 | disposition home or self-care (01) ==
LOC: OROUT 07:53
PROVIDERS: ATTEND Obstetrics & Gynecology
DX: Z30.2 Encounter for sterilization (principal); I10 Essential (primary) hypertension; I49.9 Cardiac arrhythmia, unspecified
CPT/HCPCS: 93005; 36415; 85027; 81005; 81025; 93010; 58671; J2250; J1100; J3010; J1885; J2405; J2704; J3490; 851

== ENCOUNTER → 2020-04-08 | Outpatient (CLI) | payer OTHER ==
--- NOTE | 2020-04-08 16:06 | WOMENS IMAGING REPORT ---
EXAM DESCRIPTION: 3D SCREENING MAMMO BILAT IMAGES COMPLETED DATE/TIME: 04/08/2020 3:42 pm REASON FOR STUDY: Z12.31 ENCOUNTER FOR SCREENING MAMMOGRAM FOR MALIGNANT NEOPLASM OF BREAST Z12.31 ENCNTR SCREEN MAMMOGRAM FOR MALIGNANT NEOPLASM OF PRIYANK COMPARISON: None. EXAM PARAMETERS: Views: Standard craniocaudal and mediolateral oblique views of each breast recorded using digital acquisition and breast tomosynthesis. Read with the assistance of CAD. .[facility] - R2 [employer] Version 9.2 LIMITATIONS: None. FINDINGS: No suspicious masses, suspicious calcifications or architectural distortion. No areas of c oncern. IMPRESSION: NEGATIVE MAMMOGRAM. BIRADS 1. BREAST DENSITY: b. There are scattered areas of fibroglandular density. BIRAD: ASSESSMENT: 1 NEGATIVE RECOMMENDATION: ROUTINE SCREENING COMMENT: The patient has been notified of the results by letter per MQSA requirements. Additional no tification policies are in place for contacting patient with suspicious or incomplete findings. Quality ID #[id number]: The [employer] recommends an annual screening mammogram for women aged 40 years or over. This facility utilizes a reminder system to ensure that all patients receive reminder letters, and/or direct phone calls for appointments. This includes reminders for routine scr eening mammograms, diagnostic mammograms, or other Breast Imaging Interventions when appropriate. Th is patient will be placed in the appropriate reminder system. TECHNICAL DOCUMENTATION: FINDING NUMBER: (1) ASSESSMENT: (1) JOB ID: [id number] 2010 [employer]- All Rights Reserved Reading location - IP/workstation name: [email or web address]
== END ==
LOC: WI 15:22
PROVIDERS: ATTEND Internal Medicine
DX: Z12.31 Encounter for screening mammogram for malignant neoplasm of breast (principal)
CPT/HCPCS: 77063; 77067